=== PATIENT | female | born 1965 | race Hispanic/Latino ===

== ENCOUNTER 2022-10-01 13:39 | Inpatient (IN) | payer BC, OTHER ==
[~2022-10-01] VITALS: Ht 157.5 cm; Wt 75.7 kg
[2022-10-01 13:50] LABS: BASOPHILS % 0.7 % (0.0-1.0); EOSINOPHILS # (AUTO) 0.1 (0.0-0.4); EOSINOPHILS % 1.9 % (0.0-6.0); HEMATOCRIT 41.1 % (34.2-44.1); HEMOGLOBIN 12.8 g/dL (12.0-16.0); LYMPHOCYTES # (AUTO) 1.8 (1.0-3.2); LYMPHOCYTES % 31.1 % (18.0-39.1); MEAN CORPUSCULAR HEMOGLOBIN 29.9 pg (28-32); MEAN CORPUSCULAR HGB CONC 31.1 g/dL (31-35); MONOCYTES # (AUTO) 0.4 (0.2-0.8); MONOCYTES % 6.6 % (4.4-11.3); NEUTROPHILS # (AUTO) 3.4 (2.1-6.9); NEUTROPHILS % 59.4 % (38.7-80.0); PLATELET COUNT 185 x10e3/uL (140-360); RED BLOOD COUNT 4.28 x10e6/uL (3.6-5.1); RED CELL DISTRIBUTION WIDTH 12.4 % (11.7-14.4)
[2022-10-01 13:59] LABS: INR 0.95; PROTHROMBIN TIME 12.9 seconds (11.9-14.5)
[2022-10-01 14:00] LABS: PARTIAL THROMBOPLASTIN TIME 34.3 seconds (23.8-35.5)
[2022-10-01] MEDS ORDERED: PROTONIX20 MG PO (14:00)
[2022-10-01] MEDS ORDERED: BENZONATATE100 MG PO (14:00)
[2022-10-01] MEDS ORDERED: URSODIOL300 MG PO (14:00)
[2022-10-01] MEDS ORDERED: LISINOPRIL-HCT1 EAC2 PO (14:00)
[2022-10-01] MEDS ORDERED: BEPREVE10 ML (14:00)
[2022-10-01] MEDS ORDERED: CETIRIZINE HCL5 MG PO (14:00)
[2022-10-01] MEDS ORDERED: LEVOTHYROXINE50 MCG PO (14:00)
[2022-10-01] MEDS ORDERED: KENALOG TOP (14:00)
[2022-10-01] MEDS ORDERED: HYDROXYZINE HCL10 MG PO (14:00)
[2022-10-01] MEDS ORDERED: FAMOTIDINE20 MG PO (14:00)
[2022-10-01] MEDS ORDERED: FLUOXETINE HCL10 MG PO (14:00)
[2022-10-01] MEDS ORDERED: OCALIVA5 MG PO (14:00)
[2022-10-01 14:09] LABS: ALBUMIN 3.6 g/dL (3.5-5.0); ALBUMIN/GLOBULIN RATIO 0.7 (0.8-2.0); ANION GAP 15.9 mmol/L (8-16); CALCIUM 9.4 mg/dL (8.4-10.2); CREATININE, SERUM 0.75 mg/dL (0.57-1.11); POTASSIUM 3.9 mmol/L (3.5-5.1)
[2022-10-01 14:15] LABS: CREATINE KINASE MB 0.1 ng/mL (0-5.0)
[2022-10-01] MEDS ORDERED: IOPAMIDOL 370 MG/ML 100 ML INFUS..BTL INJ ONE (14:15)
[2022-10-01] MEDS ORDERED: ASPIRIN 81 MG CHEW TAB PO ONE (15:15)
[2022-10-01] MEDS ORDERED: ASPIRIN 81 MG CHEW TAB ONE (15:24)
[2022-10-01] MEDS ORDERED: SUCRALFATE1 GM PO (16:26)
[2022-10-01 18:11] VITALS: BP 121/84
[2022-10-01 18:14] VITALS: BP 121/84
[2022-10-01] MEDS ORDERED: HYDRALAZINE HCL 20 MG/ML VIAL IV PRN (19:15)
[2022-10-01] MEDS ORDERED: POLYETHYLENE GLYCOL 3350 17 GM PACK PO PRN (19:15)
[2022-10-01] MEDS ORDERED: ACETAMINOPHEN 325 MG TAB PO PRN (19:15)
[2022-10-01] MEDS ORDERED: ONDANSETRON HCL INJ 2MG/ML 2ML 2 MG/ML VIAL IV PRN (19:15)
[2022-10-01] MEDS ORDERED: NIRMATRELVIR/RITONAVIR 1 EACH BOX PO SCH (19:45)
[2022-10-01 21:19] VITALS: BP 140/74
[2022-10-01 22:00] VITALS: BP 140/74
[2022-10-02] VITALS (7 sets, daily range): BP systolic 114–129; BP diastolic 68–78
[2022-10-02 06:10] LABS: BASOPHILS % 0.7 % (0.0-1.0); EOSINOPHILS # (AUTO) 0.1 (0.0-0.4); EOSINOPHILS % 2.7 % (0.0-6.0); HEMATOCRIT 35.6 % (34.2-44.1); HEMOGLOBIN 11.6 g/dL (12.0-16.0); LYMPHOCYTES # (AUTO) 1.5 (1.0-3.2); LYMPHOCYTES % 36.1 % (18.0-39.1); MEAN CORPUSCULAR HEMOGLOBIN 29.7 pg (28-32); MEAN CORPUSCULAR HGB CONC 32.6 g/dL (31-35); MEAN CORPUSCULAR VOLUME 91.3 fL (81-99); MONOCYTES # (AUTO) 0.3 (0.2-0.8); MONOCYTES % 7.4 % (4.4-11.3); NEUTROPHILS # (AUTO) 2.2 (2.1-6.9); NEUTROPHILS % 52.9 % (38.7-80.0); PLATELET COUNT 154 x10e3/uL (140-360); RED CELL DISTRIBUTION WIDTH 12.9 % (11.7-14.4)
[2022-10-02 06:33] LABS: ANION GAP 13.1 mmol/L (8-16); CALCIUM 9.1 mg/dL (8.4-10.2); CREATININE, SERUM 0.73 mg/dL (0.57-1.11); POTASSIUM 4.1 mmol/L (3.5-5.1)
[2022-10-02 06:46] LABS: CHOL/HDL RATIO 3.6 (3.0-3.6); MAGNESIUM 2.1 MG/DL (1.3-2.1); PHOSPHORUS 3.7 MG/DL (2.3-4.7)
[2022-10-02 07:06] LABS: THYROID STIMULATING HORMONE 2.787 uIU/mL (0.350-4.940)
[2022-10-02] MEDS: DOCUSATE SODIUM 100 MG CAP PO SCH ×2 (07:58→17:32)
[2022-10-02] MEDS: CHOLECALCIFEROL 400 UNIT TAB PO SCH (07:58)
[2022-10-02] MEDS: ASCORBIC ACID 500 MG TAB PO SCH ×2 (07:58→17:32)
[2022-10-02] MEDS: ZINC SULFATE 50 MG CAP PO SCH ×2 (07:58→17:32)
[2022-10-02] MEDS: FAMOTIDINE 20 MG TAB PO SCH ×2 (07:59→17:32)
[2022-10-02] MEDS: DEXAMETHASONE SOD PHOS INJ 4 MG/ML SDV IV SCH (07:59)
[2022-10-02] MEDS ORDERED: ACETAMIN/BUTALBITAL/CAFFEINE TAB PO PRN (15:15)
[2022-10-02] MEDS: BENZONATATE 100 MG CAP PO PRN ×2 (15:47→21:33)
[2022-10-02] MEDS ORDERED: ACETAMIN/BUTALBITAL/CAFFEINE TAB PO ONE (16:00)
[2022-10-02] MEDS: SODIUM CHLORIDE 0.9% 1000ML 1,000 ML IV SCH (17:32)
[2022-10-03] VITALS (7 sets, daily range): BP systolic 131–177; BP diastolic 71–86
[2022-10-03] MEDS: SODIUM CHLORIDE 0.9% 1000ML 1,000 ML IV SCH ×2 (05:14→16:42)
[2022-10-03 05:51] LABS: BASOPHILS % 0.5 % (0.0-1.0); EOSINOPHILS # (AUTO) 0.1 (0.0-0.4); EOSINOPHILS % 1.2 % (0.0-6.0); HEMOGLOBIN 10.8 g/dL (12.0-16.0); LYMPHOCYTES # (AUTO) 1.9 (1.0-3.2); LYMPHOCYTES % 32.8 % (18.0-39.1); MEAN CORPUSCULAR HGB CONC 32.7 g/dL (31-35); MEAN CORPUSCULAR VOLUME 91.7 fL (81-99); MONOCYTES # (AUTO) 0.4 (0.2-0.8); MONOCYTES % 6.1 % (4.4-11.3); NEUTROPHILS # (AUTO) 3.4 (2.1-6.9); NEUTROPHILS % 59.1 % (38.7-80.0); PLATELET COUNT 152 x10e3/uL (140-360); RED CELL DISTRIBUTION WIDTH 12.5 % (11.7-14.4)
[2022-10-03 06:08] LABS: ALBUMIN 3.1 g/dL (3.5-5.0); ALBUMIN/GLOBULIN RATIO 0.7 (0.8-2.0); ANION GAP 13.9 mmol/L (8-16); CALCIUM 8.9 mg/dL (8.4-10.2); CREATININE, SERUM 0.71 mg/dL (0.57-1.11); POTASSIUM 3.9 mmol/L (3.5-5.1)
[2022-10-03] MEDS: ASCORBIC ACID 500 MG TAB PO SCH ×2 (09:59→16:42)
[2022-10-03] MEDS: FAMOTIDINE 20 MG TAB PO SCH ×2 (09:59→16:42)
[2022-10-03] MEDS: CHOLECALCIFEROL 400 UNIT TAB PO SCH (09:59)
[2022-10-03] MEDS: DOCUSATE SODIUM 100 MG CAP PO SCH ×2 (09:59→16:42)
[2022-10-03] MEDS: DEXAMETHASONE SOD PHOS INJ 4 MG/ML SDV IV SCH (09:59)
[2022-10-03] MEDS: ZINC SULFATE 50 MG CAP PO SCH ×2 (09:59→16:42)
[2022-10-03] MEDS: BENZONATATE 100 MG CAP PO PRN ×2 (10:02→16:45)
[2022-10-03] MEDS ORDERED: ONDANSETRON HCL 4 MG ORAL DISINTEGRATING TAB PO PRN (12:00)
[2022-10-04] VITALS: BP 122/73
[2022-10-04 04:00] VITALS: BP 135/81
[2022-10-04] MEDS: SODIUM CHLORIDE 0.9% 1000ML 1,000 ML IV SCH (06:29)
[2022-10-04] MEDS: FAMOTIDINE 20 MG TAB PO SCH (06:30)
[2022-10-04] MEDS: BENZONATATE 100 MG CAP PO PRN (06:33)
[2022-10-04 08:30] VITALS: BP 153/84
[2022-10-04 08:45] VITALS: BP 153/84
[2022-10-04] MEDS: ZINC SULFATE 50 MG CAP PO SCH (09:38)
[2022-10-04] MEDS: DOCUSATE SODIUM 100 MG CAP PO SCH (09:38)
[2022-10-04] MEDS: ASCORBIC ACID 500 MG TAB PO SCH (09:38)
[2022-10-04] MEDS: CHOLECALCIFEROL 400 UNIT TAB PO SCH (09:38)
[2022-10-04] MEDS ORDERED: Cholecalciferol PO (09:39)
[2022-10-04] MEDS ORDERED: ASCORBIC ACID500 MG PO (09:39)
[2022-10-04] MEDS ORDERED: Zinc Sulfate PO (09:39)
[2022-10-04] MEDS ORDERED: Acetamin/Butalbital/Caffeine PO (09:39)
[2022-10-04] MEDS: DEXAMETHASONE SOD PHOS INJ 4 MG/ML SDV IV SCH (09:39)
[2022-10-04] MEDS ORDERED: ONDANSETRON ODT4 MG PO (09:39)
[2022-10-04] MEDS ORDERED: DEXAMETHASONE6 MG PO (09:49)
[2022-10-04] MEDS ORDERED: PROTONIX40 MG PO (10:40)
[2022-10-04] MEDS ORDERED: ELIQUIS2.5 MG PO (10:40)
== END 2022-10-04 10:59 | disposition home or self-care (01) | DRG 179 ==
LOC: ER 13:42 → INTOOBSV 15:15 → ERHOLD 15:15 → MED/SURG2 18:07 → OBSVTOIN 10-04 09:11
PROVIDERS: ADMIT Internal Medicine; ATTEND Internal Medicine
PROC: 8E0ZXY6 Isolation (ICD-10-PCS; principal; 2022-10-04)
DX: U07.1 COVID-19 (principal); G43.909 Migraine, unspecified, not intractable, without status migrainosus; I10 Essential (primary) hypertension; R07.89 Other chest pain; E03.9 Hypothyroidism, unspecified; K74.60 Unspecified cirrhosis of liver; B18.2 Chronic viral hepatitis C; J32.9 Chronic sinusitis, unspecified; K21.9 Gastro-esophageal reflux disease without esophagitis; Z79.899 Other long term (current) drug therapy; G51.0 Bell's palsy; Z86.16 Personal history of COVID-19
CPT/HCPCS: 36415; 70496; 70498; 70551; 71046; 80048; 80053; 80061; 82550; 82553; 83036; 83735; 84100; 84443; 84484; 85025; 85610; 85730; 93005; 94799; 95819; 99284; G0378; J1100; J7030; Q9967